=== PATIENT | female | born 1965 | race Caucasian/White ===

== ENCOUNTER 2017-07-08 13:19 | Emergency (ER) | payer OTHER, SELFPAY ==
[2017-07-08 13:32] VITALS: BP 136/85; PULSE 92; RESP 18; TEMP 98.9; O2SAT 98; BMI 33.9
--- NOTE | 2017-07-08 13:42 | C.PDOC ---
History Of Present Illness Patient is a 52 y/o female who presents to the ED with complaints of nausea, vomiting, and diarrhea for the past 1 day. Currently in ED, patient states symptoms have resolves TRAFFIC CHIEF. Patient also notes right eye discomfort since onset of abdominal symptoms, prompting ED visit. Reports to have had a lens replacement surgery in [facility] 8 months ago; at baseline, patient can only visualize shadows prior to and subsequent to surgery. Patient adds she ran out of Lininopril 20mg daily and requests a refill. Patient has no other physical complaints at this time. Time Seen by Provider: 07/08/17 13:38 Chief Complaint (Nursing): Abdominal Pain History Per: Patient History/Exam Limitations: no limitations Onset/Duration Of Symptoms: Days (1 day) Current Symptoms Are (Timing): Gone Associated Symptoms: Nausea, Vomiting, Diarrhea Recent travel outside of the [place]: No Past Medical History Reviewed: Historical Data, Nursing Documentation, Vital Signs Vital Signs: Last Vital Signs Temp 98.9 F 07/08/17 13:31 Pulse 92 H 07/08/17 13:31 Resp 18 07/08/17 13:31 BP 136/85 07/08/17 13:31 Pulse Ox 98 07/08/17 13:50 - Medical History PMH: No Chronic Diseases Other Surgeries: right lens replacement surgery in [facility] 8 months ago - [facility] [employer] [facility] Procedures INJECT/INFUSE NEC (05/09/13) Family History: States: No Known Family Hx - Social History Hx Tobacco Use: No Hx Alcohol Use: No Hx Substance Use: No - Immunization History Hx Tetanus Toxoid Vaccination: No Hx Influenza Vaccination: No Hx Pneumococcal Vaccination: No Review Of Systems Eyes: Positive for: Pain (right eye discomfort) Gastrointestinal: Positive for: Nausea, Vomiting, Diarrhea Physical Exam - Physical Exam Appears: No Acute Distress Skin: Normal Color, Warm, Dry Head: Atraumatic, Normacephalic Eye(s): right: Other (s/p lens surgery, without subconjunctival hemorrhage. Lens replacement slightly deviated to the right at baseline.) Oral Mucosa: Moist Chest: Symmetrical Cardiovascular: Rhythm Regular, No Murmur Respiratory: Normal Breath Sounds, No Rales, No Rhonchi, No Wheezing Gastrointestinal/Abdominal: Soft, No Tenderness, Other (obese) Neurological/Psych: Oriented x3, Normal Speech, Normal Cognition ED Course And Treatment O2 Sat by Pulse Oximetry: 98 Medical Decision Making Medical Decision Making: refill Lisinopril 20 daily n/v/d- resolved- BRAT diet R eye discomfort after R eye cataract/lens surgery in [facility] 8 months ago- refer to local Optho. Tylenol, Pepcid, and zofran adminsitered. Disposition Doctor Will See Patient In The: Office Counseled Patient/Family Regarding: Studies Performed, Diagnosis - Disposition Disposition: HOME/ ROUTINE Disposition Time: 13:49 Condition: GOOD Forms: [employer] (Macedonian) - Clinical Impression Clinical Impression: Hx of eye surgery, Gastroenteritis, Medication refill - Scribe Statement The provider has reviewed the documentation as recorded by the Scribe Angela Steele All medical record entries made by the Scribe were at my direction and personally dictated by me. I have reviewed the chart and agree that the record accurately reflects my personal performance of the history, physical exam, medical decision making, and the department course for this patient. I have also personally directed, reviewed, and agree with the discharge instructions and disposition.
== END 2017-07-08 14:20 | disposition home or self-care (01) ==
LOC: C.ER 13:19
DX: K52.9 Noninfective gastroenteritis and colitis, unspecified (principal); Z76.0 Encounter for issue of repeat prescription

== ENCOUNTER 2018-05-05 15:42 | Emergency (ER) | payer OTHER ==
[2018-05-05 15:43] VITALS: BMI 43.8
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
[2018-05-05 16:12] VITALS: BP 117/75; PULSE 83; TEMP 98.6; O2SAT 97
[2018-05-05 16:57] VITALS: RESP 20
--- NOTE | 2018-05-07 21:38 | CARD ---
APPROVED REPORT Date of service: 05/05/2018 EKG Measurement Heart [id number] <Conclusion> Normal sinus rhythm Normal ECG
== END 2018-05-05 16:56 | disposition home or self-care (01) ==
LOC: C.ER 15:42
DX: F41.9 Anxiety disorder, unspecified (principal); R55 Syncope and collapse; Z20.828 Contact with and (suspected) exposure to other viral communicable diseases

== ENCOUNTER 2018-07-03 08:47 | Emergency (ER) | payer OTHER ==
[2018-07-03 09:21] VITALS: BMI 37.2
[2018-07-03 09:22] VITALS: BP 161/79; PULSE 107; RESP 18; TEMP 103; O2SAT 97
--- NOTE | 2018-07-03 09:39 | C.PDOC ---
History Of Present Illness 53 y/o female presents to the ED complaining of fever, myalgias, and nausea since yesterday. Tmax was 104 at home per patient. Associated with occasional dry cough. She also reports 1 episode of vomiting this morning, now resolved. States she did not take her blood pressure treatment. HPI: Influenza Time Seen by Provider: 07/03/18 09:32 Chief Complaint: Cough, Cold, Congestion Chief Complaint (Provider): Flu-like symptoms History Per: Patient Exam Limitations: no limitations Have you had recent travel within the past 21 days to any of the following countries: [place], [place], [place] or [place]?: No Onset/Duration Of Symptoms: Days (x1) Symptoms include: fever, bodyaches, vomiting (x1) Past Medical History Reviewed: Historical Data, Nursing Documentation, Vital Signs Vital Signs: Last Vital Signs Temp 103.0 F H 07/03/18 09:21 Pulse 107 H 07/03/18 09:21 Resp 18 07/03/18 09:21 BP 161/79 H 07/03/18 09:21 Pulse Ox 97 07/03/18 09:21 - Medical History PMH: Anxiety, Arthritis, HTN Denies: Chronic Kidney Disease - [employer] Procedures INJECT/INFUSE NEC (05/09/13) Family History: States: Unknown Family Hx - Social History Hx Tobacco Use: No Hx Alcohol Use: No Hx Substance Use: No - Immunization History Hx Tetanus Toxoid Vaccination: No Hx Influenza Vaccination: No Hx Pneumococcal Vaccination: No Review Of Systems Constitutional: Positive for: Fever, Other (Myalgias) Eyes: Negative for: Vision Change ENT: Negative for: Nose Congestion, Throat Pain Cardiovascular: Negative for: Chest Pain Respiratory: Positive for: Cough. Negative for: Shortness of Breath, Sputum Gastrointestinal: Positive for: Nausea, Vomiting (x1). Negative for: Diarrhea, Constipation Musculoskeletal: Negative for: Neck Pain, Back Pain Skin: Negative for: Rash Neurological: Negative for: Weakness, Headache, Dizziness Physical Exam - Physical Exam Appears: Non-toxic, In Acute Distress (mild) Skin: Warm, Dry, No Rash Head: Atraumatic, Normacephalic Eye(s): bilateral: Normal Inspection, PERRL, EOMI Ear(s): Bilateral: Normal Nose: Normal, No Discharge Oral Mucosa: Moist Throat: Normal (uvula midline), No Erythema, No Exudate Neck: Normal ROM, Supple Chest: Symmetrical Cardiovascular: Rhythm Regular, No Murmur Respiratory: No Rales, No Rhonchi, No Wheezing, Other (Lungs clear to auscultation, NARD) Extremity: Bilateral: Atraumatic, Normal Color And Temperature, Normal ROM Pulses: Left Radial: Normal, Right Radial: Normal Neurological/Psych: Oriented x3, Normal Speech Gait: Steady Medical Decision Making Medical Decision Making: Impression: Flu-like illness Plan: - 650 mg PO Tylenol - 4 mg PO Zofran - 60 mg IM Toradol - Reassess Patient is resting comfortably, in no acute distress. Will discharge patient home with tamiflu and zofran. - ECG O2 Sat by Pulse Oximetry: 97 (RA) Pulse Ox Interpretation: Normal Disposition Counseled Patient/Family Regarding: Diagnosis, Need For Followup, Rx Given - Disposition Referrals: [facility] [Outside] [facility] [Outside] Disposition: HOME/ ROUTINE Disposition Time: 09:39 Condition: IMPROVED Prescriptions: Ondansetron ODT [Zofran ODT] 4 mg PO TID PRN #12 odt PRN Reason: Nausea/Vomiting Oseltamivir Cap [Tamiflu] 75 mg PO BID #10 cap Instructions: Influenza (ED) Forms: [facility] (Malian), Work Excuse Print Language: JAPANESE - Clinical Impression Clinical Impression: Influenza-like illness, Nausea - Scribe Statement The provider has reviewed the documentation as recorded by the Michel Gonzalez Provider Attestation: All medical record entries made by the Kerryibsilverio were at my direction and pe rsonally dictated by me. I have reviewed the chart and agree that the record accurately reflects my personal performance of the history, physical exam, medical decision making, and the department course for this patient. I have also personally directed, reviewed, and agree with the discharge instructions and disposition.
== END 2018-07-03 10:08 | disposition home or self-care (01) ==
LOC: C.ER 08:47
DX: J11.1 Influenza due to unidentified influenza virus with other respiratory manifestations (principal); R11.0 Nausea; I10 Essential (primary) hypertension
CPT/HCPCS: 96372; 99283; J1885

== ENCOUNTER 2018-07-04 12:25 | Emergency (ER) | payer OTHER ==
[2018-07-04 12:25] VITALS: BMI 37.2
--- NOTE | 2018-07-04 13:13 | C.PDOC ---
History Of Present Illness 53 y/o female presents to the ED for evaluation of sore throat. Patient was seen yesterday and diagnosed with flu-like illness. States she also has throat pain, which was not addressed yesterday. Patient complains of pain in the throat does radiate to the right ear. She has no other new symptoms. Time Seen by Provider: 07/04/18 12:43 Chief Complaint (Nursing): ENT Problem History Per: Patient History/Exam Limitations: no limitations Onset/Duration Of Symptoms: Days Current Symptoms Are (Timing): Still Present Location Of Pain: Throat Past Medical History Reviewed: Historical Data, Nursing Documentation, Vital Signs Vital Signs: Last Vital Signs Temp 99.9 F H 07/04/18 12:37 Pulse 94 H 07/04/18 12:37 Resp 20 07/04/18 12:37 BP 136/68 07/04/18 12:37 Pulse Ox 97 07/04/18 12:37 - Medical History PMH: Anxiety, Arthritis, HTN Denies: Chronic Kidney Disease Surgical History: No Surg Hx - [facility] Procedures INJECT/INFUSE NEC (05/09/13) Family History: States: Unknown Family Hx - Social History Hx Tobacco Use: No Hx Alcohol Use: No Hx Substance Use: No - Immunization History Hx Tetanus Toxoid Vaccination: No Hx Influenza Vaccination: No Hx Pneumococcal Vaccination: No Review Of Systems Constitutional: Positive for: Fever ENT: Positive for: Throat Pain Respiratory: Positive for: Cough Gastrointestinal: Negative for: Vomiting, Diarrhea Skin: Negative for: Rash Neurological: Negative for: Weakness, Dizziness Physical Exam - Physical Exam Appears: Non-toxic, No Acute Distress Skin: Warm, Dry, No Rash Head: Atraumatic, Normacephalic Eye(s): bilateral: Normal Inspection, PERRL, EOMI Ear(s): Bilateral: Normal (TMs clear) Oral Mucosa: Moist Throat: Erythema (Tonsillar erythema and hypertrophy), Exudate Neck: Normal ROM, Supple Lymphatic: Adenopathy (Palpable cervical lymphadenopathy) Chest: Symmetrical Cardiovascular: Rhythm Regular, No Murmur Respiratory: Normal Breath Sounds, No Rales, No Rhonchi, No Wheezing Extremity: Bilateral: Atraumatic, Normal ROM Neurological/Psych: Oriented x3, Normal Speech ED Course And Treatment O2 Sat by Pulse Oximetry: 97 (RA) Pulse Ox Interpretation: Normal Medical Decision Making Medical Decision Making: Impression: Pharyngitis Plan: - Amoxicillin - Motrin Disposition Counseled Patient/Family Regarding: Studies Performed, Diagnosis, Need For Followup, Rx Given - Disposition Referrals: [facility] [Outside] Disposition: HOME/ ROUTINE Disposition Time: 13:53 Condition: STABLE Additional Instructions: follow up with your doctor within 2 days call to make an appointment take medications as prescribed return to hospital if symptoms worsens or progress Prescriptions: Amoxicillin 875 mg PO BID #20 tablet Naproxen [Naprosyn] 500 mg PO BID PRN #16 tab PRN Reason: Pain, Moderate (4-7) Instructions: Sore Throat, Adult (DC) Forms: [facility] (Bengali), General Discharge Instructions - Clinical Impression Clinical Impression: Pharyngitis - Kerryibe Statement The provider has reviewed the documentation as recorded by the Michel Gonzalez Provider Attestation: All medical record entries made by the Michel were at my direction and pe rsonally dictated by me. I have reviewed the chart and agree that the record accurately reflects my personal performance of the history, physical exam, medical decision making, and the department course for this patient. I have also personally directed, reviewed, and agree with the discharge instructions and disposition.
[2018-07-04 14:05] VITALS: BP 135/79; PULSE 78; RESP 16; TEMP 98.8; O2SAT 98
== END 2018-07-04 14:04 | disposition home or self-care (01) ==
LOC: C.ER 12:25
DX: J02.9 Acute pharyngitis, unspecified (principal)

== ENCOUNTER 2018-07-09 22:33 | Emergency (ER) | payer SELFPAY ==
[2018-07-09 22:34] VITALS: BMI 37.2
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
[2018-07-09] MEDS ORDERED: Sodium Chloride 0.9% 1,000 ML IV ONE (23:37)
[2018-07-10 00:28] LABS: BASO # 0.1 K/uL (0.0-0.2); BASO % 0.6 % (0.0-2.0); EOS # 0.2 K/uL (0.0-0.7); EOS % 2.3 % (0.0-4.0); HEMOGLOBIN 12.6 g/dL (11.0-16.0); LYMPH # 2.3 K/uL (1.0-4.3); LYMPH % 22.5 % (20.0-40.0); MEAN CELL VOLUME 94.7 fL (81.0-99.0); MEAN CORPUSCULAR HEMOGLOBIN 30.8 pg (27.0-31.0); MEAN CORPUSCULAR HGB CONC 32.5 g/dL (33.0-37.0); MEAN PLATELET VOLUME 8.3 fL (7.2-11.7); MONO # 0.7 K/uL (0.0-0.8); MONO % 6.6 % (0.0-10.0); NEUT # 7.1 K/uL (1.8-7.0); NRBC % 0.2 % (0.0-2.0); RBC 4.08 Mil/uL (3.80-5.20); RED CELL DISTRIBUTION WIDTH 13.3 % (11.5-14.5); WHITE BLOOD COUNT 10.4 K/uL (4.8-10.8)
[2018-07-10 00:34] LABS: SQUAMOUS EPITHIAL 5 /hpf (0-5); URINE BILIRUBIN NEGATIVE (NEGATIVE); URINE BLOOD NEGATIVE (NEGATIVE); URINE CLARITY Hazy (Clear); URINE COLOR Yellow (YELLOW); URINE GLUCOSE (UA) NORMAL (Normal); URINE LEUKOCYTE ESTERASE NEG Leu/uL (Negative); URINE PROTEIN 1+ mg/dL (NEGATIVE)
[2018-07-10 00:43] LABS: ALB/GLOB RATIO 1.3 (1.0-2.1); ALT/SGPT 28 U/L (9-52); AST/SGOT 25 U/L (14-36); BLOOD UREA NITROGEN 20 mg/dL (7-17); CALCIUM 8.8 mg/dl (8.6-10.4); GFR NON-AFRICAN AMERICAN > 60
[2018-07-10 02:18] VITALS: BP 117/74; PULSE 98; RESP 18; TEMP 98.6; O2SAT 98
--- NOTE | 2018-07-10 08:21 | CT ---
Date of service: 07/10/2018 PROCEDURE: CT HEAD WITHOUT CONTRAST. HISTORY: Syncope COMPARISON: 02/20/2016 TECHNIQUE: Axial computed tomography images were obtained through the head/brain without intravenous contrast. Radiation dose: Total exam DLP = 1180.08 mGy-cm. This CT exam was performed using one or more of the following dose reduction techniques: Automated exposure control, adjustment of the mA and/or kV according to patient size, and/or use of iterative reconstruction technique. FINDINGS: HEMORRHAGE: No intracranial hemorrhage. BRAIN: No mass effect or edema. No atrophy or chronic microvascular ischemic changes. Punctate hypodensities in the bilateral basal ganglia may represent prominent perivascular spaces versus small lacunar infarcts. VENTRICLES: Unremarkable. No hydrocephalus. CALVARIUM: Unremarkable. PARANASAL SINUSES: Unremarkable as visualized. No significant inflammatory changes. MASTOID AIR CELLS: Unremarkable as visualized. No inflammatory changes. OTHER FINDINGS: Incidentally noted is a partially empty sella turcica. Clinical correlation. IMPRESSION: No acute intracranial abnormality. If symptoms persists, consider correlation with MRI. A preliminary report was generated at 07/10/2018 at 1:[address] Lulu Perdomo from [employer].
--- NOTE | 2018-07-10 12:46 | CARD ---
APPROVED REPORT Date of service: 07/09/2018 EKG Measurement Heart [id number] <Conclusion> Normal sinus rhythm Possible Left atrial enlargement Borderline ECG
--- NOTE | 2018-07-10 14:24 | RAD ---
Date of service: 07/09/2018 PROCEDURE: CHEST RADIOGRAPH, 1 VIEW HISTORY: chest pain COMPARISON: None available. FINDINGS: LUNGS: Clear. Shallow lung volumes. PLEURA: No pneumothorax or pleural fluid seen. CARDIOVASCULAR: No aortic atherosclerotic calcification present. Probable top-normal heart size given inspiration and technique. No significant appearing pulmonary venous congestion. OSSEOUS STRUCTURES: Thoracic spondylosis. VISUALIZED UPPER ABDOMEN: Normal. OTHER FINDINGS: None. IMPRESSION: Probable top-normal heart size-shallow lung volumes. Clear lungs.
== END 2018-07-10 02:20 | disposition home or self-care (01) ==
LOC: C.ER 22:33
DX: R55 Syncope and collapse (principal); I10 Essential (primary) hypertension; F41.9 Anxiety disorder, unspecified